=== PATIENT | female | born 1980 | race American Indian/Alaskan Native ===

== ENCOUNTER 2018-12-14 13:17 | Outpatient (CLI) | payer OTHER | END 2018-12-14 14:35 | disposition home or self-care (01) | LOC: NST 13:17 | DX: Z34.83 Encounter for supervision of other normal pregnancy, third trimester (principal) ==

== ENCOUNTER 2018-12-21 12:45 | Inpatient (IN) | payer OTHER ==
[~2018-12-21] VITALS: Ht 152.4 cm; Wt 70.3 kg
[2018-12-21] MEDS ORDERED: PRENATABS RX T1 EACH PO (14:10)
== END 2018-12-30 13:14 | disposition home or self-care (01) | DRG 785 ==
LOC: LDR 12:45 → O/R 12-27 09:50 → OB/GYN 12-27 09:50 → LDR 12-27 12:45 → OB/GYN 12-27 15:30
PROVIDERS: ADMIT Obstetrics & Gynecology Maternal & Fetal Medicine
PROC: 4A1HXCZ Monitoring of Products of Conception, Cardiac Rate, External Approach (ICD-10-PCS; 2018-12-27)
PROC: 0UB70ZZ Excision of Bilateral Fallopian Tubes, Open Approach (ICD-10-PCS; 2018-12-27)
PROC: 10D00Z1 Extraction of Products of Conception, Low, Open Approach (ICD-10-PCS; principal; 2018-12-27 07:00)
DX: O32.2XX0 Maternal care for transverse and oblique lie, not applicable or unspecified (principal); Z3A.39 39 weeks gestation of pregnancy; Z37.0 Single live birth; Z30.2 Encounter for sterilization

== ENCOUNTER 2022-09-15 14:32 | Emergency (ER) | payer OTHER ==
[~2022-09-15] VITALS: Ht 152.4 cm; Wt 59.4 kg
[~2022-09-15 14:32] MED LIST: PRENATABS RX T1 EACH PO
== END 2022-09-15 18:07 | disposition home or self-care (01) ==
LOC: ER 14:32
DX: R10.31 Right lower quadrant pain (principal); Q44.6 Cystic disease of liver

== ENCOUNTER 2025-03-08 09:13 | Emergency (ER) | payer OTHER ==
[~2025-03-08] VITALS: Ht 149.9 cm; Wt 60.8 kg
== END 2025-03-08 11:44 | disposition home or self-care (01) ==
LOC: ER 09:13
DX: K43.9 Ventral hernia without obstruction or gangrene (principal)